=== PATIENT | female | born 1985 | race Caucasian/White ===

== ENCOUNTER 2020-09-30 08:22 | Emergency (ER) | payer OTHER, SELFPAY ==
[2020-09-30] MEDS ORDERED: CODEINE 30MG/APAP 300MG TAB ONE ×2 (09:47→09:54)
[2020-09-30] MEDS ORDERED: TETANUS & DIPHTHERIA TOX,ADULT 0.5 ML VIAL ONE ×2 (09:47→09:54)
[2020-09-30] MEDS ORDERED: ONDANSETRON 4 MG (ODT) TAB ONE (10:04)
[2020-09-30] MEDS ORDERED: LIDOCAINE 1% 20 ML MDV ONE (10:06)
--- NOTE | 2020-09-30 10:26 | ER ---
Nurse's Notes [facility] Name: Norma Rivera Age: 35 yrs Sex: Female : 1985 Arrival Date: 09/30/2020 Time: 08:24 Bed 19 Private MD: Diagnosis: Laceration without foreign body of left index finger without damage to nail Presentation: 09/30 08:48 Chief complaint: Patient states: laceration to L index finger after cutting open a ss package with a knife last night around 1930. Coronavirus screen: Client denies travel out of the [place] in the last 14 days. Ebola Screen: Patient denies exposure to infectious person. Patient denies travel to an Ebola-affected area in the 21 days before illness onset. Initial Sepsis Screen: Does the patient meet any 2 criteria? No. Patient's initial sepsis screen is negative. Does the patient have a suspected source of infection? No. Patient's initial sepsis screen is negative. Risk Assessment: Do you want to hurt yourself or someone else? Patient reports no desire to harm self or others. Onset of symptoms was September 29, 2020. 08:48 Method Of Arrival: Ambulatory ss 08:48 Acuity: MELISSA 4 ss Historical: - Allergies: 08:51 No Known Allergies; ss - Immunization history:: Adult Immunizations up to date, Last tetanus immunization: up to date. - Social history:: Smoking status: Patient reports the use of cigarette tobacco products, smokes one-half pack cigarettes per day. Screenin:13 Abuse screen: Denies threats or abuse. Denies injuries from another. Nutritional ph screening: No deficits noted. Tuberculosis screening: No symptoms or risk factors identified. Fall Risk None identified. Assessment: 10:12 General: Appears in no apparent distress. uncomfortable, slender, well groomed, ph Behavior is calm, cooperative, appropriate for age, Denies fever. Pain: Complains of pain in palmar aspect of distal phalanx of left index finger. Neuro: Level of Consciousness is awake, alert, obeys commands, Oriented to person, place, time, situation. Cardiovascular: Capillary refill < 3 seconds Patient's skin is warm and dry. Derm: Skin is healthy with good turgor, Skin is pink, warm \T\ dry. Musculoskeletal: Circulation, motion, and sensation intact. Range of motion: intact in all extremities. Injury Description: Laceration sustained to palmar aspect of distal phalanx of left index finger is 0.5 to 2.5 cm long, not bleeding. Vital Signs: 08:48 BP 115 / 81; Pulse 82; Resp 15; Temp 98.2(TE); Pulse Ox 100% on R/A; Weight 43.54 kg; ss Height 5 ft. 1 in. (154.94 cm); Pain 9/10; 10:39 BP 122 / 76; Pulse 78; Resp 18; Temp 98.0; Pulse Ox 100% on R/A; ph 08:48 Body Mass Index 18.14 (43.54 kg, 154.94 cm) ED Course: 08:24 Patient arrived in ED. as 08:50 Triage completed. ss 08:51 Arm band placed on right wrist. ss 08:56 Fang Howard, TRACEY is Primary Nurse. ss 09:06 Chidi Elam NP is PHCP. pm1 09:06 Carlos Enrique Tovar MD is Attending Physician. pm1 10:13 Patient has correct armband on for positive identification. Bed in low position. Call ph light in reach. Side rails up X 1. Pulse ox on. NIBP on. Door closed. Warm blanket given. PO fluids given. 10:39 Assist provider with laceration repair on palmar aspect of distal phalanx of left index ph finger that was 2.5 cm. or less using sutures. Set up tray. Performed by Chidi Elam NP Dressed with 4X4s, aluminum finger splint Patient tolerated well. Patient did not have IV access during this emergency room visit. 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 Exp: ph 02/10/2022. Lot #: [id number]. } Route: IM; Site: right deltoid; 10:37 Follow up: Response: No adverse reaction ph 10:08 Drug: Zofran (Ondansetron) 4 mg Route: PO; ph 10:38 Follow up: Response: No adverse reaction; Nausea is decreased ph 10:08 Drug: Lidocaine (1 %) 5 mg Route: Infiltration; ph 10:38 Follow up: Response: No adverse reaction ph Outcome: 10:25 Discharge ordered by MD. pm1 10:41 Discharged to home ambulatory, with family. ph 10:41 Condition: good 10:41 Discharge instructions given to patient, Instructed on discharge instructions, follow up and referral plans. medication usage, Demonstrated understanding of instructions, follow-up care, medications, Prescriptions given X 3. 10:41 Patient left the ED. ph Signatures: Litzy Calderon Shelby, TRACEY RN Daxa Joseph RN RN Chidi Elam, ANNA GARMENT LINER pm1
--- NOTE | 2020-09-30 10:26 | EDPHYS ---
Physician Documentation [facility] Name: Norma Rivera Age: 35 yrs Sex: Female : 1985 Arrival Date: 09/30/2020 Time: 08:24 Bed 19 Private MD: ED Physician Carlos Enrique Tovar HPI: 09/30 09:39 This 35 yrs old Female presents to ER via Ambulatory with complaints of pm1 Finger Injury - laceration. 09:39 The patient or guardian reports a laceration, irregular. The complaints affect the pm1 palmar aspect of distal phalanx of left index finger. Context: The problem was sustained at home, resulted from accidentally cut hand with knife opening a package. Onset: The symptoms/episode began/occurred last night. Modifying factors: The symptoms are alleviated by pressure to area. Associated signs and symptoms: Pertinent positives: numbness distally, Pertinent negatives: cyanosis distally, decreased sensation distally, tingling distally. Severity of symptoms: in the emergency department the symptoms have improved. The patient has not recently seen a physician. Historical: - Allergies: 08:51 No Known Allergies; ss - Immunization history:: Adult Immunizations up to date, Last tetanus immunization: up to date. - Social history:: Smoking status: Patient reports the use of cigarette tobacco products, smokes one-half pack cigarettes per day. ROS: 09:39 Constitutional: Negative for fever, chills, and weight loss, Cardiovascular: Negative pm1 for chest pain, palpitations, and edema, Respiratory: Negative for shortness of breath, cough, wheezing, and pleuritic chest pain, Abdomen/GI: Negative for abdominal pain, nausea, vomiting, diarrhea, and constipation. 09:39 Neuro: Negative for headache, weakness, numbness, tingling, and seizure. 09:39 MS/extremity: Positive for laceration, of the palmar aspect of distal phalanx of left index finger. 09:39 Skin: Positive for laceration(s), of the palmar aspect of distal phalanx of left index finger. Exam: 09:39 Constitutional: This is a well developed, well nourished patient who is awake, alert, pm1 and in no acute distress. Head/Face: Normocephalic, atraumatic. 09:39 Cardiovascular: Exam negative for acute changes, Rate: normal, Rhythm: regular, Pulses: no pulse deficits are appreciated. 09:39 Respiratory: Exam negative for acute changes, respiratory distress, shortness of breath. 09:39 Musculoskeletal/extremity: Extremities: grossly normal except: noted in the palmar aspect of distal phalanx of left index finger: laceration, There is no evidence of decreased ROM, deformity, the left hand and palmar aspect of distal phalanx of left index finger Sensation intact. Vital Signs: 08:48 BP 115 / 81; Pulse 82; Resp 15; Temp 98.2(TE); Pulse Ox 100% on R/A; Weight 43.54 kg; ss Height 5 ft. 1 in. (154.94 cm); Pain 9/10; 10:39 BP 122 / 76; Pulse 78; Resp 18; Temp 98.0; Pulse Ox 100% on R/A; ph 08:48 Body Mass Index 18.14 (43.54 kg, 154.94 cm) ss Laceration: 10:22 Wound Repair of 1cm ( 0.4in ) subcutaneous laceration to palmar aspect of distal pm1 phalanx of left index finger. Irregularly shaped.. Distal neuro/vascular/tendon intact. Anesthesia: Digital block administered with 3 mls of 1% lidocaine. Wound prep: Extensive cleansing with betadine with hibiclenz by me, Wound irrigation with saline by me, Wound explored extensively, Copious irrigation. Skin closed with 3 4-0 Prolene using simple sutures and sterile technique. Dressed with Neosporin, 4x4's. Patient tolerated well. MDM: 09:21 Patient medically screened. pm1 10:22 Data reviewed: vital signs. Data interpreted: Pulse oximetry: on room air is 100 %. pm1 Interpretation: normal. Counseling: I had a detailed discussion with the patient and/or guardian regarding: the historical points, exam findings, and any diagnostic results supporting the discharge/admit diagnosis, the need for outpatient follow up, to return to the emergency department if symptoms worsen or persist or if there are any questions or concerns that arise at home, suture removal in 10-14 days. 10:22 Special discussion: I discussed in detail with the patient the higher chance of wound pm1 infection based on his presenting history. 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 Exp: ph 02/10/2022. Lot #: [id number]. } Route: IM; Site: right deltoid; 10:37 Follow up: Response: No adverse reaction ph 10:08 Drug: Zofran (Ondansetron) 4 mg Route: PO; ph 10:38 Follow up: Response: No adverse reaction; Nausea is decreased ph 10:08 Drug: Lidocaine (1 %) 5 mg Route: Infiltration; ph 10:38 Follow up: Response: No adverse reaction ph Disposition: 15:42 Co-signature as Attending Physician, Carlos Enrique Tovar MD. rn Disposition: 09/30/20 10:25 Discharged to Home. Impression: Laceration without foreign body of left index finger without damage to nail. - Condition is Stable. - Discharge Instructions: Laceration Care, Adult, [id number]. - Prescriptions for Keflex 500 mg Oral Capsule - take 1 capsule by ORAL route every 6 hours for 10 days; 40 capsule. Tylenol- Codeine #3 300-30 mg Oral Tablet - take 2 tablets by ORAL route every 6 hours As needed; 20 tablet. Zofran ODT 4 mg Oral tablet,disintegrating - place 1 tablet by TRANSLINGUAL route every 8 hours As needed; 12 tablet. - Medication Reconciliation Form, Thank You Letter, Antibiotic Education, Prescription Opioid Use form. - Follow up: Emergency Department; When: As needed; Reason: Worsening of condition. Follow up: Private Physician; When: 10 - 14 days; Reason: Recheck today's complaints, Continuance of care, Staple/Suture removal, Re-evaluation by your physician. - Problem is new. - Symptoms have improved. Signatures: Carlos Enrique Tovar MD MD rn Smirch, Shelby, RN RN Daxa Joseph RN RN Chidi Figueroa, ANNA VEGETABLE SORTER pm1 Corrections: (The following items were deleted from the chart) 10:41 10:25 09/30/2020 10:25 Discharged to Home. Impression: Laceration without foreign body ph of left index finger without damage to nail. Condition is Stable. Forms are Medication Reconciliation Form, Thank You Letter, Antibiotic Education, Prescription Opioid Use. Follow up: Emergency Department; When: As needed; Reason: Worsening of condition. Follow up: Private Physician; When: 10 - 14 days; Reason: Recheck today's complaints, Continuance of care, Staple/Suture removal, Re-evaluation by your physician. Problem is new. Symptoms have improved. pm1
[2020-10-05 01:18] VITALS: O2SAT 100
[2020-10-05 01:19] VITALS: BP 122/76; TEMP 98
== END 2020-09-30 10:41 | disposition home or self-care (01) ==
LOC: ER 08:22
PROC: 0JQK0ZZ Repair Left Hand Subcutaneous Tissue and Fascia, Open Approach (ICD-10-PCS; principal; 2020-09-30)
DX: S61.211A Laceration without foreign body of left index finger without damage to nail, initial encounter (principal); W26.0XXA Contact with knife, initial encounter; Y93.89 Activity, other specified; Y92.009 Unspecified place in unspecified non-institutional (private) residence as the place of occurrence of the external cause; Z23 Encounter for immunization; F17.210 Nicotine dependence, cigarettes, uncomplicated
CPT/HCPCS: 90471; 90714; 99284